=== PATIENT | male | born 1970 | race Caucasian/White ===

== ENCOUNTER 2017-10-12 11:06 | Observation (INO) | payer OTHER ==
[~2017-10-12] VITALS: Ht 167.6 cm; Wt 122.9 kg
[~2017-10-12 11:06] MED LIST: ASPI325 PO; Amoxicillin875 MG PO; Antivert25 MG PO; BENZ100A PO; ERYT.5TO RIGHTEYE; Esgic Tablet1 EACH PO; HYDACE5 PO; LISI20 PO; METF500; METF500 PO; NEOPOLDEXS LEFTEYE; Norco 5-325 Ta1 EACH PO; Pepcid40 MG PO; lisinopril PO
[2017-10-12 11:47] LABS: BASOPHILS ABSOLUTE AUTO 0.09 K/mm3 (0.00-0.23); BASOPHILS PERCENT AUTO 1 % (0-2); EOSINOPHILS ABSOLUTE AUTO 0.11 K/mm3 (0.00-0.68); EOSINOPHILS PERCENT AUTO 1 % (0-6); Hematocrit 42.3 % (37.0-53.0); Hemoglobin 14.9 g/dL (13.5-17.5); IMMATURE GRAN ABSOLUTE AUTO 0.02 K/mm3 (0.00-0.10); IMMATURE GRAN PERCENT AUTO 0 % (0-1); LYMPHOCYTES ABSOLUTE AUTO 2.04 K/mm3 (0.84-5.20); LYMPHOCYTES PERCENT AUTO 25 % (21-46); MONOCYTES ABSOLUTE AUTO 0.47 K/mm3 (0.16-1.47); MONOCYTES PERCENT AUTO 6 % (4-13); Mean Corpuscular HGB 30.2 pg (26.0-34.0); Mean Corpuscular HGB Conc 35.2 g/dL (31.5-36.5); Mean Corpuscular Volume 86 fL (80-100); Mean Platelet Volume 10.7 fL (9.1-12.4); NEUTROPHILS PERCENT AUTO 67 % (41-73); Platelet Count 279 K/mm3 (150-400); RDW Coefficient Variation 12.8 % (11.7-14.2); RDW Standard Deviation 40.1 fL (35.1-46.3); Red Blood Cell Count 4.93 M/mm3 (4.30-5.90); White Blood Cell Count 8.33 K/mm3 (4.00-11.30)
[2017-10-12 12:02] LABS: Troponin I <0.015 ng/mL (0.000-0.040)
[2017-10-12 12:37] LABS: Alanine Aminotransfer (ALT/SGP 39 U/L (12-78); Albumin, Blood 3.4 g/dL (3.4-5.0); Albumin/Globulin Ratio 0.9 (0.8-1.8); Alk Phos 89 U/L (50-136); Anion Gap 10 mmol/L (6-16); Aspartate Aminotrans (AST/SGOT 23 U/L (12-37); Bilirubin, Total 0.6 mg/dL (0.1-1.0); Blood Urea Nitrogen 17 mg/dL (8-24); CO2, Blood 23 mmol/L (21-32); Calcium, Blood 8.4 mg/dL (8.5-10.1); Chloride, Blood 106 mmol/L (98-108); Creatinine, Blood 0.63 mg/dL (0.60-1.20); Globulin, Blood 3.6 g/dL (2.2-4.0); Glomerular Filtration Rate >60 (60-); Glucose, Blood 196 mg/dL (70-99); Potassium, Blood 3.7 mmol/L (3.5-5.5); Sodium, Blood 139 mmol/L (136-145)
[2017-10-12 14:48] LABS: Cholesterol 209 mg/dL (50-200)
[2017-10-12 14:56] LABS: CHOL/HDL RATIO Unable to Calculate; LDL/HDL RATIO Unable to Calculate; Low Density Lipoprotein Chol Unable to Calculate mg/dL (0-110); Triglycerides 1049 mg/dL (30-160); Very Low Density Lipoprot Chol 210 mg/dL (6-32)
[2017-10-12 17:54] LABS: Troponin I <0.015 ng/mL (0.000-0.040)
[2017-10-13 08:13] LABS: Triglycerides 646 mg/dL (30-160)
== END 2017-10-13 11:04 | disposition home or self-care (01) ==
LOC: ER 11:06 → SURS 11:07 → ER 13:22 → SURS 13:22
PROVIDERS: Emergency Medicine; Internal Medicine
DX: R07.9 Chest pain, unspecified (principal); I10 Essential (primary) hypertension; E11.9 Type 2 diabetes mellitus without complications; E66.9 Obesity, unspecified; K21.9 Gastro-esophageal reflux disease without esophagitis; E78.5 Hyperlipidemia, unspecified; E78.1 Pure hyperglyceridemia; M19.90 Unspecified osteoarthritis, unspecified site; Z88.0 Allergy status to penicillin; Z88.5 Allergy status to narcotic agent; Z86.73 Personal history of transient ischemic attack (TIA), and cerebral infarction without residual deficits; Z68.42 Body mass index [BMI] 45.0-49.9, adult; Z79.899 Other long term (current) drug therapy
CPT/HCPCS: 36415; 71046; 80053; 80061; 82947; 83036; 83690; 84443; 84478; 84484; 85025; 85379; 93005; 93010; 93306; 96372; 96374; 96376; 99285; G0378; J1650

== ENCOUNTER 2020-09-11 09:08 | Emergency (ER) | payer OTHER ==
[~2020-09-11] VITALS: Ht 165.1 cm; Wt 129.3 kg
[~2020-09-11 09:08] MED LIST changes: +FENOFIBRATE48 MG PO; +GLIM4 PO; +METF500C PO; +Prinivil10 MG PO
[2020-09-11] MEDS ORDERED: JARDIANCE25 MG PO (09:43)
[2020-09-11] MEDS ORDERED: FISH OIL-VIT D1 EACH PO (09:43)
[2020-09-11] MEDS ORDERED: LISI20 PO (09:43)
[2020-09-11 10:23] LABS: Base Excess Venous -1.6 mmol/L; Bicarbonate Venous 23.3 mmol/L (24.0-30.0); PCO2 Venous 37.2 mmHg (38-42); PO2 Venous 82.1 mmHg (38-42)
[2020-09-11 10:44] LABS: BASOPHILS ABSOLUTE AUTO 0.12 K/mm3 (0.00-0.23); BASOPHILS PERCENT AUTO 2 % (0-2); EOSINOPHILS PERCENT AUTO 1 % (0-6); Hematocrit 45.1 % (37.0-53.0); Hemoglobin 14.9 g/dL (13.5-17.5); IMMATURE GRAN ABSOLUTE AUTO 0.03 K/mm3 (0.00-0.10); IMMATURE GRAN PERCENT AUTO 0 % (0-1); LYMPHOCYTES ABSOLUTE AUTO 2.42 K/mm3 (0.84-5.20); LYMPHOCYTES PERCENT AUTO 29 % (21-46); MONOCYTES ABSOLUTE AUTO 0.51 K/mm3 (0.16-1.47); MONOCYTES PERCENT AUTO 6 % (4-13); Mean Corpuscular HGB 29.1 pg (26.0-34.0); Mean Corpuscular Volume 88 fL (80-100); Mean Platelet Volume 11.1 fL (9.1-12.4); NEUTROPHILS ABSOLUTE AUTO 5.08 K/mm3 (1.96-9.15); NEUTROPHILS PERCENT AUTO 61 % (41-73); Platelet Count 285 K/mm3 (150-400); RDW Coefficient Variation 13.5 % (11.7-14.2); RDW Standard Deviation 43.6 fL (35.1-46.3); Red Blood Cell Count 5.12 M/mm3 (4.30-5.90); White Blood Cell Count 8.26 K/mm3 (4.00-11.30)
[2020-09-11 10:51] LABS: Alanine Aminotransfer (ALT/SGP 45 U/L (12-78); Albumin, Blood 3.7 g/dL (3.4-5.0); Alk Phos 66 U/L (50-136); Anion Gap 8 mmol/L (6-16); Aspartate Aminotrans (AST/SGOT 17 U/L (12-37); Bilirubin, Total 0.5 mg/dL (0.1-1.0); Blood Urea Nitrogen 15 mg/dL (8-24); Bun/Creatinine Ratio 21.5 (12.0-20.0); CO2, Blood 23 mmol/L (21-32); Calcium, Blood 8.8 mg/dL (8.5-10.1); Chloride, Blood 105 mmol/L (98-108); Globulin, Blood 3.7 g/dL (2.2-4.0); Glomerular Filtration Rate >60 (60-); Glucose, Blood 267 mg/dL (70-99); Potassium, Blood 4.3 mmol/L (3.5-5.5); Sodium, Blood 136 mmol/L (136-145); Total Protein, Blood 7.4 g/dL (6.4-8.2); Troponin I <0.015 ng/mL (0.000-0.040)
[2020-09-11] MEDS ORDERED: Ativan1 MG SL (12:50)
== END 2020-09-11 13:03 | disposition home or self-care (01) ==
LOC: ER 09:08
PROVIDERS: Emergency Medicine
DX: R07.9 Chest pain, unspecified (principal); R20.2 Paresthesia of skin; I10 Essential (primary) hypertension; E11.9 Type 2 diabetes mellitus without complications; Z88.0 Allergy status to penicillin; Z88.5 Allergy status to narcotic agent; Z79.84 Long term (current) use of oral hypoglycemic drugs; Z79.899 Other long term (current) drug therapy
CPT/HCPCS: 36415; 71045; 80053; 82803; 83880; 84484; 85025; 93005; 93010; 96361; 96374; 99285-25; J2405; J7030

== ENCOUNTER 2021-01-20 10:25 | Emergency (ER) | payer OTHER ==
[~2021-01-20] VITALS: Ht 165.1 cm; Wt 124.7 kg
[~2021-01-20 10:25] MED LIST changes: +Ativan1 MG SL; +FISH OIL-VIT D1 EACH PO; +JARDIANCE25 MG PO
[2021-01-20 11:44] LABS: BASOPHILS ABSOLUTE AUTO 0.03 K/mm3 (0.00-0.23); BASOPHILS PERCENT AUTO 0 % (0-2); EOSINOPHILS PERCENT AUTO 0 % (0-6); Hematocrit 46.3 % (37.0-53.0); IMMATURE GRAN ABSOLUTE AUTO 0.05 K/mm3 (0.00-0.10); IMMATURE GRAN PERCENT AUTO 0 % (0-1); LYMPHOCYTES ABSOLUTE AUTO 0.95 K/mm3 (0.84-5.20); LYMPHOCYTES PERCENT AUTO 8 % (21-46); MONOCYTES ABSOLUTE AUTO 0.48 K/mm3 (0.16-1.47); MONOCYTES PERCENT AUTO 4 % (4-13); Mean Corpuscular HGB Conc 34.6 g/dL (31.5-36.5); Mean Corpuscular Volume 84 fL (80-100); Mean Platelet Volume 10.6 fL (9.1-12.4); NEUTROPHILS ABSOLUTE AUTO 9.87 K/mm3 (1.96-9.15); NEUTROPHILS PERCENT AUTO 87 % (41-73); Platelet Count 235 K/mm3 (150-400); RDW Coefficient Variation 13.1 % (11.7-14.2); RDW Standard Deviation 40.4 fL (35.1-46.3); Red Blood Cell Count 5.51 M/mm3 (4.30-5.90); White Blood Cell Count 11.38 K/mm3 (4.00-11.30)
[2021-01-20 12:47] LABS: Alanine Aminotransfer (ALT/SGP 25 U/L (12-78); Albumin, Blood 2.6 g/dL (3.4-5.0); Albumin/Globulin Ratio 0.6 (0.8-1.8); Alk Phos 63 U/L (50-136); Anion Gap 18 mmol/L (6-16); Aspartate Aminotrans (AST/SGOT 31 U/L (12-37); Bilirubin, Total 0.6 mg/dL (0.1-1.0); Blood Urea Nitrogen 14 mg/dL (8-24); Bun/Creatinine Ratio 20.3 (12.0-20.0); CO2, Blood 14 mmol/L (21-32); Calcium, Blood 8.1 mg/dL (8.5-10.1); Chloride, Blood 96 mmol/L (98-108); Creatinine, Blood 0.69 mg/dL (0.60-1.20); Globulin, Blood 4.5 g/dL (2.2-4.0); Glomerular Filtration Rate >60 (60-); Glucose, Blood 198 mg/dL (70-99); Potassium, Blood 4.1 mmol/L (3.5-5.5); Sodium, Blood 128 mmol/L (136-145); Total Protein, Blood 7.1 g/dL (6.4-8.2); Troponin I <0.015 ng/mL (0.000-0.040)
== END 2021-01-20 16:25 | disposition home or self-care (01) ==
LOC: ER 10:25
PROVIDERS: Emergency Medicine
DX: K85.90 Acute pancreatitis without necrosis or infection, unspecified (principal); Z79.84 Long term (current) use of oral hypoglycemic drugs; Z79.899 Other long term (current) drug therapy
CPT/HCPCS: 36415; 71045; 71260; 76705; 80053; 83690; 84484; 85025; 85379; 93005; 93010; 96374-59; 96375-59; 99285-25; A9270; A9270-GY; J1170; J2405; J7030; Q9967

== ENCOUNTER 2021-01-22 09:11 | Inpatient (IN) | payer OTHER ==
[~2021-01-22] VITALS: Ht 165.1 cm; Wt 115.2 kg
[2021-01-22] MEDS ORDERED: FENOFIBRATE145 MG PO (09:20)
[2021-01-22 10:00] LABS: BASOPHILS ABSOLUTE AUTO 0.04 K/mm3 (0.00-0.23); BASOPHILS PERCENT AUTO 1 % (0-2); EOSINOPHILS ABSOLUTE AUTO 0.05 K/mm3 (0.00-0.68); EOSINOPHILS PERCENT AUTO 1 % (0-6); Hematocrit 44.2 % (37.0-53.0); Hemoglobin 15.2 g/dL (13.5-17.5); IMMATURE GRAN ABSOLUTE AUTO 0.03 K/mm3 (0.00-0.10); IMMATURE GRAN PERCENT AUTO 0 % (0-1); LYMPHOCYTES ABSOLUTE AUTO 1.16 K/mm3 (0.84-5.20); LYMPHOCYTES PERCENT AUTO 16 % (21-46); MONOCYTES ABSOLUTE AUTO 0.31 K/mm3 (0.16-1.47); MONOCYTES PERCENT AUTO 4 % (4-13); Mean Corpuscular HGB Conc 34.4 g/dL (31.5-36.5); Mean Corpuscular Volume 84 fL (80-100); Mean Platelet Volume 10.8 fL (9.1-12.4); NEUTROPHILS ABSOLUTE AUTO 5.49 K/mm3 (1.96-9.15); NEUTROPHILS PERCENT AUTO 78 % (41-73); Platelet Count 249 K/mm3 (150-400); RDW Coefficient Variation 13.1 % (11.7-14.2); Red Blood Cell Count 5.25 M/mm3 (4.30-5.90); White Blood Cell Count 7.08 K/mm3 (4.00-11.30)
[2021-01-22 10:17] LABS: Alanine Aminotransfer (ALT/SGP 28 U/L (12-78); Albumin, Blood 2.4 g/dL (3.4-5.0); Albumin/Globulin Ratio 0.5 (0.8-1.8); Alk Phos 68 U/L (50-136); Anion Gap 11 mmol/L (6-16); Aspartate Aminotrans (AST/SGOT 47 U/L (12-37); Bilirubin, Total 0.6 mg/dL (0.1-1.0); Blood Urea Nitrogen 11 mg/dL (8-24); Bun/Creatinine Ratio 17.7 (12.0-20.0); CO2, Blood 24 mmol/L (21-32); Calcium, Blood 8.2 mg/dL (8.5-10.1); Chloride, Blood 95 mmol/L (98-108); Creatinine, Blood 0.62 mg/dL (0.60-1.20); Globulin, Blood 4.7 g/dL (2.2-4.0); Glomerular Filtration Rate >60 (60-); Glucose, Blood 203 mg/dL (70-99); Potassium, Blood 4.1 mmol/L (3.5-5.5); Sodium, Blood 130 mmol/L (136-145); Total Protein, Blood 7.1 g/dL (6.4-8.2); Troponin I <0.015 ng/mL (0.000-0.040)
[2021-01-22 11:29] LABS: Influenza A, PCR NEGATIVE (NEGATIVE); Influenza B, PCR NEGATIVE (NEGATIVE); Resp Syncytial Virus, PCR NEGATIVE (NEGATIVE)
[2021-01-22 11:58] LABS: SARS-Cov-2 (COVID-19) PCR, MMC POSITIVE (NEGATIVE)
[2021-01-22] MEDS ORDERED: ESCI20 PO (12:12)
[2021-01-22] MEDS ORDERED: FLUOXETINE HCL20 M2 PO (12:12)
--- NOTE | 2021-01-22 18:11 | NUR ---
SHIFT NOTE PT ARRIVED FROM ER THIS EVENING WITH DX OF COVID, PT WAS ADMITED TO PCU AFTER BEING SEEN IN ER X2 DAYS AGO FOR SOB PT RETURNED HE WANTED TESTED FOR COVID AND STATED INCREASE IN SOB. PT WITH NONLABORED BREATHING, SKIN PWD AND INTACT. TALKING IN FULL SENTENCES. VSS. AMBULATED FROM [facility] TO [facility].
[2021-01-23 04:47] LABS: BASOPHILS ABSOLUTE AUTO 0.02 K/mm3 (0.00-0.23); BASOPHILS PERCENT AUTO 0 % (0-2); EOSINOPHILS PERCENT AUTO 0 % (0-6); Hematocrit 42.6 % (37.0-53.0); Hemoglobin 14.6 g/dL (13.5-17.5); IMMATURE GRAN ABSOLUTE AUTO 0.07 K/mm3 (0.00-0.10); IMMATURE GRAN PERCENT AUTO 1 % (0-1); LYMPHOCYTES ABSOLUTE AUTO 0.94 K/mm3 (0.84-5.20); LYMPHOCYTES PERCENT AUTO 13 % (21-46); MONOCYTES ABSOLUTE AUTO 0.28 K/mm3 (0.16-1.47); MONOCYTES PERCENT AUTO 4 % (4-13); Mean Corpuscular HGB 29.3 pg (26.0-34.0); Mean Corpuscular HGB Conc 34.3 g/dL (31.5-36.5); Mean Corpuscular Volume 86 fL (80-100); Mean Platelet Volume 9.8 fL (9.1-12.4); NEUTROPHILS ABSOLUTE AUTO 6.05 K/mm3 (1.96-9.15); NEUTROPHILS PERCENT AUTO 82 % (41-73); Platelet Count 307 K/mm3 (150-400); RDW Coefficient Variation 13.2 % (11.7-14.2); RDW Standard Deviation 41.1 fL (35.1-46.3); Red Blood Cell Count 4.98 M/mm3 (4.30-5.90); White Blood Cell Count 7.36 K/mm3 (4.00-11.30)
[2021-01-23 05:05] LABS: Anion Gap 15 mmol/L (6-16); Blood Urea Nitrogen 16 mg/dL (8-24); Bun/Creatinine Ratio 24.3 (12.0-20.0); CO2, Blood 20 mmol/L (21-32); Calcium, Blood 8.3 mg/dL (8.5-10.1); Chloride, Blood 97 mmol/L (98-108); Creatinine, Blood 0.66 mg/dL (0.60-1.20); Glomerular Filtration Rate >60 (60-); Glucose, Blood 131 mg/dL (70-99); Potassium, Blood 4.2 mmol/L (3.5-5.5); Sodium, Blood 132 mmol/L (136-145)
--- NOTE | 2021-01-23 06:28 | NUR ---
SHIFT SUMMARY PT A&OX4. USES CALL LIGHT APPROPRIATELY. SP02>92% ON 3L NC. PT HAS NON PRODUCTIVE COUGH AND PAIN WHEN DEEP BREATHING. MEDICATED W/ TYLENOL X1 THIS SHIFT. PT HAS DYSPNEA W/ EXERTION/CONVERSATION. TELMETERY READS SR, HR 80'S. PT USED URINAL AT BEDSIDE. PT SLEPT MOST OF NIGHT. CALL LIGHT IN REACH. WILL GIVE REPORT TO ONCOMING NURSE.
--- NOTE | 2021-01-23 18:24 | NUR ---
PT REPORTS LONELINESS AT BEING IN ISOLATION AND ANXIETY ABOUT BEING FROM HIS DOGS AND ROOMMATES. OXYGENATION LEVEL IS IMPROVING. PT CHANGES POSITIONS FREQUENTLY TO OPTIMIZE OXYGENATION. PT DENIES ADDITIONAL CONCERNS AT THIS TIME.
[2021-01-24 04:51] LABS: Albumin, Blood 2.2 g/dL (3.4-5.0); Anion Gap 11 mmol/L (6-16); Blood Urea Nitrogen 17 mg/dL (8-24); Bun/Creatinine Ratio 29.5 (12.0-20.0); CO2, Blood 22 mmol/L (21-32); Calcium, Blood 8.1 mg/dL (8.5-10.1); Chloride, Blood 97 mmol/L (98-108); Creatinine, Blood 0.58 mg/dL (0.60-1.20); Glomerular Filtration Rate >60 (60-); Glucose, Blood 158 mg/dL (70-99); Phosphorus, Blood 3.9 mg/dL (2.5-4.9); Potassium, Blood 3.9 mmol/L (3.5-5.5); Sodium, Blood 130 mmol/L (136-145)
--- NOTE | 2021-01-24 04:52 | NUR ---
SHIFT SUMMARY NO ACUTE CHANGES THIS SHIFT. PT A&OX4. PER REPORT OF PT FEELING LONELY, THIS RN HAD LENGTHY CONVERSATIONS WITH PT. PT ENGAGED, PLEASANT. SP02>92% ON 2L NC. PT HAS NON PRODUCTIVE, OCCASIONAL DRY COUGH. TELEMETRY READ NSR, HR 80'S. PT USED URINAL MULTIPLE TIMES AT BEDSIDE. PT DENIED PAIN THIS SHIFT. PT SLEPT ON AND OFF T/O NIGHT. CALL LIGHT IN REACH. WILL GIVE REPORT TO ONCOMING NURSE.
--- NOTE | 2021-01-24 18:07 | NUR ---
PT REPORTS DIMINISHED DIFFICULTY BREATHING AND DECREASED ANXIETY AND AIR HUNGER. BLOOD SUGARS CORRECTED 2X PER MAR. PT DENIES ADDITIONAL CONCERNS AT THIS TIME. PT HAS TRANSFER ORDERS TO GO TO ROOM 312 AT SHIFT CHANGE.
--- NOTE | 2021-01-24 19:41 | NUR ---
PHONE REPORT GIVEN TO BG MOORE AT 1930. PT TRANSFERRED TO ROOM 312 VIA WHEELCHAIR WITH TECH AND THERAPY AND MONITORING.
--- NOTE | 2021-01-25 06:30 | NUR ---
SHIFT SUMMARY PT WAS A TRANSFER FROM PCU AT START OF SHIFT, ARRIVING AT 1999. HE WAS ADMITTED FOR COVID-19, IN ENHANCED PRECAUTIONS. HE IS A&O X 4, INDEPENDENT IN THE ROOM. PT IS REPORTING A MILD COUGH AND DYSPNEA, BUT DENIES CP OR NAUSEA. CURRENTLY ON 1L OF O2, SATTING > 90%. TELE SHOWED NSR IN THE 80S. VITAL SIGNS STABLE. NO ACUTE CHANGES IN PT CONDITON NOTED. WILL CONTINUE TO MONITOR AND TREAT PER EMAR UNTIL HAND OFF TO DAY SHIFT RN.
--- NOTE | 2021-01-25 15:49 | NUR ---
PATIENT PLEASANT AND COOPERATIVE WITH STAFF. C/O HEADACHE THIS MORNING WITH EFFECTIVE RESULTS FROM REQUESTED APAP. VITALS HAVE BEEN STABLE. PATIENT CONTINUES ON IV ABX AND ANTI-VIRALS WITHOUT S/SX OF ADVERSE REACTIONS NOTED OR REPORTED. INDEPENDENT IN ROOM. CALLS APPROPRIATELY FOR STAFF NEEDED. CALL LIGHT WITHIN REACH.
--- NOTE | 2021-01-26 06:23 | NUR ---
PT IS A/O IND IN ROOM. TELE IN SR. DRY COUGH NOTED THIS SHIFT SOOTHED BY HOT TEA. PT APPEARED TO HAVE SLEPT THROUGH MOST OF SHIFT AWAKENING TO USE RESTROOM.
[2021-01-26] MEDS ORDERED: ALBU90OI INH (11:41)
[2021-01-26] MEDS ORDERED: VISBIOME 112.51 EACH PO (11:42)
--- NOTE | 2021-01-26 16:07 | NUR ---
DISCHARGE SUMMARY PT DISCHARGE TO HOME ORDERED AT 1540 THIS SHIFT. NO CONCERNS OR COMPLAINTS NOTED TO PATIENT THIS SHIFT, NO ACUTE CHANGES NOTED. PT COOPERATIVE T/O DISCHARGE PROCESS. PT VERBALIZED UNDERSTANDING OF DISCHARGE ORDERS AND INSTRUCTIONS. DISCHARGE PAPERWORK GIVEN TO PT UPON DISCHARGE. IV LINE AND TELE DISCONTINUED PRIOR TO DISCHARGE.
== END 2021-01-26 15:40 | disposition home or self-care (01) | DRG 871 ==
LOC: ER 09:11 → PCU 12:36 → MEDS 01-24 20:00
PROVIDERS: Emergency Medicine; ADMIT Family Medicine
PROC: XW033E5 Introduction of Remdesivir Anti-infective into Peripheral Vein, Percutaneous Approach, New Technology Group 5 (ICD-10-PCS; principal; 2021-01-22)
PROC: 8E0ZXY6 Isolation (ICD-10-PCS; 2021-01-22)
PROC: 3E0333Z Introduction of Anti-inflammatory into Peripheral Vein, Percutaneous Approach (ICD-10-PCS; 2021-01-23)
DX: A41.89 Other specified sepsis (principal); U07.1 COVID-19; J96.01 Acute respiratory failure with hypoxia; J12.82 Pneumonia due to coronavirus disease 2019; Z68.41 Body mass index [BMI] 40.0-44.9, adult; E87.1 Hypo-osmolality and hyponatremia; R65.20 Severe sepsis without septic shock; E11.9 Type 2 diabetes mellitus without complications; I10 Essential (primary) hypertension; E66.01 Morbid (severe) obesity due to excess calories; F40.240 Claustrophobia; G47.30 Sleep apnea, unspecified; E87.5 Hyperkalemia; F32.9 Major depressive disorder, single episode, unspecified; Z86.73 Personal history of transient ischemic attack (TIA), and cerebral infarction without residual deficits
CPT/HCPCS: 0241U; 36415; 71045; 80048; 80053; 80069; 82947; 83605; 84145; 84484; 85025; 85379; 87040; 93005; 93010; 93970; 94762; 96365; 96375; 99285-25; A9270; A9270-GY; J0456; J0696; J1100; J1650; J1815; J7040; J7050

== ENCOUNTER 2021-03-19 13:36 | Emergency (ER) | payer OTHER ==
[~2021-03-19] VITALS: Ht 165.1 cm; Wt 127.9 kg
[~2021-03-19 13:36] MED LIST changes: +ALBU90OI INH; +ESCI20 PO; +FENOFIBRATE145 MG PO; +FLUOXETINE HCL20 M2 PO; +VISBIOME 112.51 EACH PO
[2021-03-19 13:58] LABS: BASOPHILS ABSOLUTE AUTO 0.16 K/mm3 (0.00-0.23); BASOPHILS PERCENT AUTO 2 % (0-2); EOSINOPHILS ABSOLUTE AUTO 0.13 K/mm3 (0.00-0.68); EOSINOPHILS PERCENT AUTO 2 % (0-6); Hematocrit 44.6 % (37.0-53.0); Hemoglobin 15.6 g/dL (13.5-17.5); IMMATURE GRAN ABSOLUTE AUTO 0.01 K/mm3 (0.00-0.10); IMMATURE GRAN PERCENT AUTO 0 % (0-1); LYMPHOCYTES ABSOLUTE AUTO 2.36 K/mm3 (0.84-5.20); LYMPHOCYTES PERCENT AUTO 30 % (21-46); MONOCYTES ABSOLUTE AUTO 0.57 K/mm3 (0.16-1.47); MONOCYTES PERCENT AUTO 7 % (4-13); Mean Corpuscular HGB 30.3 pg (26.0-34.0); Mean Corpuscular Volume 87 fL (80-100); Mean Platelet Volume 10.2 fL (9.1-12.4); NEUTROPHILS ABSOLUTE AUTO 4.64 K/mm3 (1.96-9.15); NEUTROPHILS PERCENT AUTO 59 % (41-73); Platelet Count 329 K/mm3 (150-400); RDW Coefficient Variation 13.4 % (11.7-14.2); RDW Standard Deviation 42.5 fL (35.1-46.3); Red Blood Cell Count 5.15 M/mm3 (4.30-5.90); White Blood Cell Count 7.87 K/mm3 (4.00-11.30)
[2021-03-19 14:16] LABS: Alanine Aminotransfer (ALT/SGP 36 U/L (12-78); Albumin/Globulin Ratio 1.1 (0.8-1.8); Alk Phos 59 U/L (50-136); Anion Gap 8 mmol/L (6-16); Aspartate Aminotrans (AST/SGOT 13 U/L (12-37); Bilirubin, Total 0.5 mg/dL (0.1-1.0); Blood Urea Nitrogen 17 mg/dL (8-24); Bun/Creatinine Ratio 21.9 (12.0-20.0); CO2, Blood 23 mmol/L (21-32); Calcium, Blood 8.9 mg/dL (8.5-10.1); Chloride, Blood 105 mmol/L (98-108); Creatinine, Blood 0.78 mg/dL (0.60-1.20); Globulin, Blood 3.7 g/dL (2.2-4.0); Glomerular Filtration Rate >60 (60-); Glucose, Blood 231 mg/dL (70-99); Potassium, Blood 3.8 mmol/L (3.5-5.5); Sodium, Blood 136 mmol/L (136-145); Total Protein, Blood 7.7 g/dL (6.4-8.2)
== END 2021-03-19 16:16 | disposition left against medical advice (07) ==
LOC: ER 13:36
PROVIDERS: Physician Assistant
DX: K92.0 Hematemesis (principal); Z88.0 Allergy status to penicillin; Z88.5 Allergy status to narcotic agent; Z79.84 Long term (current) use of oral hypoglycemic drugs; Z79.899 Other long term (current) drug therapy
CPT/HCPCS: 36415; 80053; 85025; 99284

== ENCOUNTER 2021-04-30 08:32 | Emergency (ER) | payer OTHER ==
[~2021-04-30] VITALS: Ht 165.1 cm; Wt 124.7 kg
[2021-04-30] MEDS ORDERED: EZETIMIBE10 M6 PO (09:05)
[2021-04-30 09:09] LABS: BASOPHILS PERCENT AUTO 1 % (0-2); EOSINOPHILS ABSOLUTE AUTO 0.08 K/mm3 (0.00-0.68); EOSINOPHILS PERCENT AUTO 1 % (0-6); Hematocrit 44.2 % (37.0-53.0); Hemoglobin 15.2 g/dL (13.5-17.5); IMMATURE GRAN ABSOLUTE AUTO 0.02 K/mm3 (0.00-0.10); IMMATURE GRAN PERCENT AUTO 0 % (0-1); LYMPHOCYTES ABSOLUTE AUTO 1.96 K/mm3 (0.84-5.20); LYMPHOCYTES PERCENT AUTO 28 % (21-46); MONOCYTES ABSOLUTE AUTO 0.53 K/mm3 (0.16-1.47); MONOCYTES PERCENT AUTO 8 % (4-13); Mean Corpuscular HGB 29.6 pg (26.0-34.0); Mean Corpuscular HGB Conc 34.4 g/dL (31.5-36.5); Mean Corpuscular Volume 86 fL (80-100); Mean Platelet Volume 10.4 fL (9.1-12.4); NEUTROPHILS ABSOLUTE AUTO 4.34 K/mm3 (1.96-9.15); NEUTROPHILS PERCENT AUTO 62 % (41-73); Platelet Count 253 K/mm3 (150-400); RDW Standard Deviation 40.5 fL (35.1-46.3); Red Blood Cell Count 5.13 M/mm3 (4.30-5.90); White Blood Cell Count 7.03 K/mm3 (4.00-11.30)
[2021-04-30 09:26] LABS: Troponin I <0.015 ng/mL (0.000-0.040)
[2021-04-30 09:27] LABS: Alanine Aminotransfer (ALT/SGP 39 U/L (12-78); Albumin, Blood 3.8 g/dL (3.4-5.0); Albumin/Globulin Ratio 1.1 (0.8-1.8); Alk Phos 50 U/L (50-136); Anion Gap 7 mmol/L (6-16); Aspartate Aminotrans (AST/SGOT 23 U/L (12-37); Bilirubin, Total 0.5 mg/dL (0.1-1.0); Blood Urea Nitrogen 13 mg/dL (8-24); Bun/Creatinine Ratio 18.7 (12.0-20.0); CO2, Blood 23 mmol/L (21-32); Calcium, Blood 8.4 mg/dL (8.5-10.1); Chloride, Blood 108 mmol/L (98-108); Creatinine, Blood 0.69 mg/dL (0.60-1.20); Globulin, Blood 3.4 g/dL (2.2-4.0); Glomerular Filtration Rate >60 (60-); Glucose, Blood 191 mg/dL (70-99); Potassium, Blood 3.9 mmol/L (3.5-5.5); Sodium, Blood 138 mmol/L (136-145); Total Protein, Blood 7.2 g/dL (6.4-8.2)
== END 2021-04-30 11:02 | disposition home or self-care (01) ==
LOC: ER 08:32
PROVIDERS: Emergency Medicine
DX: R51.9 Headache, unspecified (principal); E11.40 Type 2 diabetes mellitus with diabetic neuropathy, unspecified; I10 Essential (primary) hypertension; E11.9 Type 2 diabetes mellitus without complications; Z88.0 Allergy status to penicillin; Z88.5 Allergy status to narcotic agent; Z79.899 Other long term (current) drug therapy
CPT/HCPCS: 36415; 70450; 80053; 84484; 85025; 93005; 93010; 96374; 96375; 99284-25; J0780; J1200

== ENCOUNTER 2021-08-07 09:59 | Emergency (ER) | payer OTHER ==
[~2021-08-07] VITALS: Ht 170.2 cm; Wt 124.3 kg
[~2021-08-07 09:59] MED LIST changes: +EZETIMIBE10 M6 PO
[2021-08-07 11:01] LABS: BASOPHILS ABSOLUTE AUTO 0.11 K/mm3 (0.00-0.23); BASOPHILS PERCENT AUTO 2 % (0-2); EOSINOPHILS PERCENT AUTO 2 % (0-6); Hematocrit 44.3 % (37.0-53.0); Hemoglobin 15.2 g/dL (13.5-17.5); IMMATURE GRAN ABSOLUTE AUTO 0.02 K/mm3 (0.00-0.10); IMMATURE GRAN PERCENT AUTO 0 % (0-1); LYMPHOCYTES ABSOLUTE AUTO 1.89 K/mm3 (0.84-5.20); LYMPHOCYTES PERCENT AUTO 29 % (21-46); MONOCYTES ABSOLUTE AUTO 0.36 K/mm3 (0.16-1.47); MONOCYTES PERCENT AUTO 5 % (4-13); Mean Corpuscular HGB 29.6 pg (26.0-34.0); Mean Corpuscular HGB Conc 34.3 g/dL (31.5-36.5); Mean Corpuscular Volume 86 fL (80-100); Mean Platelet Volume 9.9 fL (9.1-12.4); NEUTROPHILS ABSOLUTE AUTO 4.16 K/mm3 (1.96-9.15); NEUTROPHILS PERCENT AUTO 63 % (41-73); Platelet Count 280 K/mm3 (150-400); RDW Coefficient Variation 13.1 % (11.7-14.2); RDW Standard Deviation 40.7 fL (35.1-46.3); Red Blood Cell Count 5.14 M/mm3 (4.30-5.90); White Blood Cell Count 6.64 K/mm3 (4.00-11.30)
[2021-08-07 11:01] LABS: Source, Urine Clean Catch
[2021-08-07 11:14] LABS: Bilirubin, Urine Neg (Neg); Blood, Urine 1+ (Neg); Glucose Qualitative, Urine 4+ (Neg); Ketones, Urine Neg (Neg); Leukocyte Esterase, Urine Neg (Neg); Nitrite, Urine Neg (Neg); Protein, Urine 2+ (Neg); Specific Gravity, Urine 1.015 (1.003-1.022); Urobilinogen, Urine NORM (Normal)
[2021-08-07 11:22] LABS: Alanine Aminotransfer (ALT/SGP 38 U/L (12-78); Albumin, Blood 3.5 g/dL (3.4-5.0); Alk Phos 62 U/L (50-136); Anion Gap 6 mmol/L (6-16); Aspartate Aminotrans (AST/SGOT 20 U/L (12-37); Bilirubin, Total 0.4 mg/dL (0.1-1.0); Blood Urea Nitrogen 15 mg/dL (8-24); Bun/Creatinine Ratio 27.4 (12.0-20.0); CO2, Blood 25 mmol/L (21-32); Calcium, Blood 9.1 mg/dL (8.5-10.1); Chloride, Blood 104 mmol/L (98-108); Creatinine, Blood 0.55 mg/dL (0.60-1.20); Globulin, Blood 3.6 g/dL (2.2-4.0); Glomerular Filtration Rate >60 (60-); Glucose, Blood 258 mg/dL (70-99); Potassium, Blood 4.1 mmol/L (3.5-5.5); Sodium, Blood 135 mmol/L (136-145); Total Protein, Blood 7.1 g/dL (6.4-8.2); Troponin I <0.015 ng/mL (0.000-0.040)
[2021-08-07 11:56] LABS: Appearance, Urine Clear (Clear); Color, Urine Yellow (P-Yellow)
[2021-08-07 11:57] LABS: Bacteria Rare /hpf; Squamous Epithelial Cells Not Seen /hpf (Few); White Blood Cells, Urine 0-2 /hpf (0-5)
[2021-08-07] MEDS ORDERED: MECL25 PO (13:17)
== END 2021-08-07 13:25 | disposition home or self-care (01) ==
LOC: ER 09:59
PROVIDERS: Physician Assistant
DX: E86.0 Dehydration (principal); E11.40 Type 2 diabetes mellitus with diabetic neuropathy, unspecified; Z87.891 Personal history of nicotine dependence; Z88.0 Allergy status to penicillin; Z88.5 Allergy status to narcotic agent; Z79.899 Other long term (current) drug therapy
CPT/HCPCS: 36415; 71046; 80053; 81001; 84484; 85025; 93005; 93010; 99284-25; A9270; J7030

== ENCOUNTER 2022-07-21 10:28 | Emergency (ER) | payer OTHER ==
[~2022-07-21] VITALS: Ht 165.1 cm; Wt 124.7 kg
[~2022-07-21 10:28] MED LIST changes: +MECL25 PO
[2022-07-21 12:53] LABS: EOSINOPHILS PERCENT AUTO 2 % (0-6); Hemoglobin 12.7 g/dL (13.5-17.5); MONOCYTES PERCENT AUTO 5 % (4-13)
[2022-07-21 13:47] LABS: BASOPHILS ABSOLUTE AUTO 0.11 K/mm3 (0.00-0.23); BASOPHILS PERCENT AUTO 2 % (0-2); EOSINOPHILS ABSOLUTE AUTO 0.17 K/mm3 (0.00-0.68); IMMATURE GRAN ABSOLUTE AUTO 0.03 K/mm3 (0.00-0.10); IMMATURE GRAN PERCENT AUTO 0 % (0-1); LYMPHOCYTES ABSOLUTE AUTO 2.08 K/mm3 (0.84-5.20); LYMPHOCYTES PERCENT AUTO 29 % (21-46); MONOCYTES ABSOLUTE AUTO 0.38 K/mm3 (0.16-1.47); NEUTROPHILS ABSOLUTE AUTO 4.31 K/mm3 (1.96-9.15); NEUTROPHILS PERCENT AUTO 61 % (41-73); NRBC ABSOLUTE 0.02 K/mm3 (0.00-0.02); NRBC Auto 0.3 /100 WBC (0.0-0.2)
[2022-07-21 13:56] LABS: Hematocrit 40.4 % (37.0-53.0); Mean Corpuscular HGB 27.3 pg (26.0-34.0); Mean Corpuscular Volume 87 fL (80-100); Red Blood Cell Count 4.66 M/mm3 (4.30-5.90); White Blood Cell Count 7.08 K/mm3 (4.00-11.30)
[2022-07-21 13:57] LABS: Mean Corpuscular HGB Conc 31.4 g/dL (31.5-36.5); Platelet Count 322 K/mm3 (150-400); RDW Coefficient Variation 13.5 % (11.7-14.2); RDW Standard Deviation 41.7 fL (35.1-46.3)
[2022-07-21 13:58] LABS: Mean Platelet Volume 10.9 fL (9.1-12.4)
[2022-07-21 15:39] LABS: Albumin, Blood 2.9 g/dL (3.4-5.0); Albumin/Globulin Ratio 0.8 (0.8-1.8); Bilirubin, Total 1.1 mg/dL (0.1-1.0); Bun/Creatinine Ratio 37.4 (12.0-20.0); Calcium, Blood 7.7 mg/dL (8.5-10.1); Creatinine, Blood 0.21 mg/dL (0.60-1.20); Globulin, Blood 3.8 g/dL (2.2-4.0); Potassium, Blood 4.6 mmol/L (3.5-5.5); Total Protein, Blood 6.7 g/dL (6.4-8.2)
[2022-07-21] MEDS ORDERED: MUPIROCIN1 G1 TOP (16:26)
[2022-07-21] MEDS ORDERED: LIDOCAINE1 EAC1 TOP (16:26)
[2022-07-21] MEDS ORDERED: IBUP800 PO (16:26)
== END 2022-07-21 17:05 | disposition home or self-care (01) ==
LOC: ER 10:28
PROVIDERS: Physician Assistant; Student in an Organized Health Care Education/Training Program
DX: R07.89 Other chest pain (principal); L73.9 Follicular disorder, unspecified; E11.65 Type 2 diabetes mellitus with hyperglycemia; I10 Essential (primary) hypertension; Z88.0 Allergy status to penicillin; Z88.5 Allergy status to narcotic agent; Z79.899 Other long term (current) drug therapy; Z79.84 Long term (current) use of oral hypoglycemic drugs
CPT/HCPCS: 36415; 71046; 80053; 82947; 84484; 85025; 85379; 93005; 93010; A9270; J1815; J1885

== ENCOUNTER → 2022-08-16 | Outpatient (CLI) | payer OTHER ==
[~2022-08-16] MED LIST changes: +IBUP800 PO; +LIDOCAINE1 EAC1 TOP; +MUPIROCIN1 G1 TOP
[2022-08-16 18:01] LABS: BASOPHILS ABSOLUTE AUTO 0.12 K/mm3 (0.00-0.23); BASOPHILS PERCENT AUTO 2 % (0-2); EOSINOPHILS PERCENT AUTO 3 % (0-6); Hemoglobin 12.5 g/dL (13.5-17.5); IMMATURE GRAN ABSOLUTE AUTO 0.06 K/mm3 (0.00-0.10); IMMATURE GRAN PERCENT AUTO 1 % (0-1); LYMPHOCYTES PERCENT AUTO 32 % (21-46); MONOCYTES PERCENT AUTO 5 % (4-13); Mean Corpuscular HGB 31.1 pg (26.0-34.0); Mean Corpuscular HGB Conc 35.7 g/dL (31.5-36.5); Mean Corpuscular Volume 87 fL (80-100); Mean Platelet Volume 10.2 fL (9.1-12.4); NEUTROPHILS ABSOLUTE AUTO 4.68 K/mm3 (1.96-9.15); NEUTROPHILS PERCENT AUTO 58 % (41-73); Platelet Count 344 K/mm3 (150-400); RDW Coefficient Variation 13.6 % (11.7-14.2); Red Blood Cell Count 4.02 M/mm3 (4.30-5.90); White Blood Cell Count 8.06 K/mm3 (4.00-11.30)
[2022-08-16 18:08] LABS: Albumin, Blood 3.3 g/dL (3.4-5.0); Albumin/Globulin Ratio 0.9 (0.8-1.8); Bilirubin, Total 0.4 mg/dL (0.1-1.0); Bun/Creatinine Ratio 27.9 (12.0-20.0); Calcium, Blood 7.9 mg/dL (8.5-10.1); Creatinine, Blood 0.68 mg/dL (0.60-1.20); Globulin, Blood 3.5 g/dL (2.2-4.0); Potassium, Blood 3.7 mmol/L (3.5-5.5); Total Protein, Blood 6.8 g/dL (6.4-8.2)
== END | disposition home or self-care (01) ==
LOC: LAB SHORT 17:52 → LAB 17:52
PROVIDERS: Physician Assistant
DX: E11.65 Type 2 diabetes mellitus with hyperglycemia (principal); R07.9 Chest pain, unspecified
CPT/HCPCS: 80053; 83036; 83690; 84484; 85025

== ENCOUNTER 2022-09-13 10:24 | Inpatient (IN) | payer OTHER ==
[~2022-09-13] VITALS: Ht 165.1 cm; Wt 120.2 kg
[2022-09-13 12:13] LABS: BASOPHILS ABSOLUTE AUTO 0.16 K/mm3 (0.00-0.23); BASOPHILS PERCENT AUTO 1 % (0-2); EOSINOPHILS ABSOLUTE AUTO 0.11 K/mm3 (0.00-0.68); EOSINOPHILS PERCENT AUTO 1 % (0-6); Hematocrit 32.7 % (37.0-53.0); Hemoglobin 10.2 g/dL (13.5-17.5); IMMATURE GRAN ABSOLUTE AUTO 0.03 K/mm3 (0.00-0.10); IMMATURE GRAN PERCENT AUTO 0 % (0-1); LYMPHOCYTES ABSOLUTE AUTO 1.44 K/mm3 (0.84-5.20); LYMPHOCYTES PERCENT AUTO 12 % (21-46); MONOCYTES ABSOLUTE AUTO 0.58 K/mm3 (0.16-1.47); MONOCYTES PERCENT AUTO 5 % (4-13); Mean Corpuscular HGB Conc 31.2 g/dL (31.5-36.5); Mean Corpuscular Volume 80 fL (80-100); Mean Platelet Volume 10.5 fL (9.1-12.4); NEUTROPHILS ABSOLUTE AUTO 9.63 K/mm3 (1.96-9.15); NEUTROPHILS PERCENT AUTO 81 % (41-73); Platelet Count 420 K/mm3 (150-400); RDW Standard Deviation 43.4 fL (35.1-46.3); Red Blood Cell Count 4.08 M/mm3 (4.30-5.90); White Blood Cell Count 11.95 K/mm3 (4.00-11.30)
[2022-09-13 12:24] LABS: Albumin, Blood 3.2 g/dL (3.4-5.0); Albumin/Globulin Ratio 0.9 (0.8-1.8); Bilirubin, Total 0.7 mg/dL (0.1-1.0); Bun/Creatinine Ratio 19.3 (12.0-20.0); Calcium, Blood 8.2 mg/dL (8.5-10.1); Creatinine, Blood 0.52 mg/dL (0.60-1.20); Globulin, Blood 3.7 g/dL (2.2-4.0); Potassium, Blood 4.3 mmol/L (3.5-5.5); Total Protein, Blood 6.9 g/dL (6.4-8.2)
[2022-09-13 16:35] LABS: CHOL/HDL RATIO 8.4; Cholesterol 245 mg/dL (50-200); HDL Cholesterol 29 mg/dL (>39); LDL/HDL RATIO Unable to Calculate; Low Density Lipoprotein Chol Unable to Calculate mg/dL (0-110); Triglycerides 846 mg/dL (30-160); Very Low Density Lipoprot Chol Unable to Calculate mg/dL (6-32)
[2022-09-13 16:40] LABS: Thyroid Stimulating Hormone 0.276 uIU/mL (0.360-4.800)
--- NOTE | 2022-09-13 20:06 | NUR ---
ARRIVAL TO MEDICAL FLOOR OBTAINED REPORT ON NEW ADMIT TO [facility] FROM COURIER DRIVER. PATIENT NOTED TO HAVE ACTIVE CHEST PAIN THAT WAS IMPROVED WITH NITRO. TROPONINS TRENDING UP FROM 100-200 UP TO OVER 2200. THIS RN QUESTIONED THE ADMIT TO [facility] FLOOR, INSTEAD OF TO PCU. COURIER DRIVER STATED THAT SINCE THERE WERE NO EKG CHANGES IT WAS APPROPRIATE. INFORMED [facility] CHARGE NURSES OF THIS. PATIENT ARRIVED TO FLOOR. ALERT AND ORIENTED. REPORTING SEVERE CHEST PAIN 05/11. HOSP RESIDENT DR HUERTA ARRIVED TO BEDSIDE AND INFORMED PATIENT OF TROPONIN LEVEL OF OVER 2200. DR HUERTA CALLED DR WAITE INVENTORY MANAGEMENT SPECIALIST. DR WAITE ARRIVED TO ROOM AND ORDERED STAT IV BETA JAVIER, HEPARIN, SL NITRO, AND EKG. THESE ORDERS WERE ENTERED BY PUMP INSTALLATION AND SERVICER RN IN ROOM. AFTER EXAMINATION OF PATIENT AND REVIEW OF EKG DR WAITE ORDERED PATIENT TO BE TAKEN TO TAX MAP TECHNICIAN. BOOKSEAMER BLINDSTITCH NOTIFIED WHO ALERTED TAX MAP TECHNICIAN TEAM.
[2022-09-13 20:12] LABS: Anti-Xa UFH, PHA Monitoring 0.97 IU/mL; International Normalized Ratio 1.1; Prothrombin Time Results 11.5 Sec (9.7-11.5)
[2022-09-13] MEDS ORDERED: GLIMEPIRIDE4 MG PO (20:13)
[2022-09-13] MEDS ORDERED: RYBELSUS7 MG PO (20:13)
[2022-09-13] MEDS ORDERED: MUPIROCIN1 G1 TOP (20:14)
[2022-09-13] MEDS ORDERED: FENO145 PO (20:14)
[2022-09-13] MEDS ORDERED: IBU800 M1 PO (20:15)
[2022-09-13] MEDS ORDERED: Cyclobenzaprine5 MG PO (20:15)
--- NOTE | 2022-09-13 23:16 | NUR ---
DURING SHIFT CHANGE WE WENT INTO THIS PT'S ROOM FIRST TO DO BEDSIDE REPORT. DR HUERTA HAD ORDERED A CARDIOLOGY COSULT FOR DR BUNDY. DR BUNDY CAME TO THE ROOM TO EVALUATE THE PATIENT. THE PATIENT WAS HAVING ACTIVE CHEST PAIN THAT INCREASED WITH BREATHING AND EXERTION. HE ALSO HAD SOME CRITICAL LABS PREVIOUSLY. DR BUNDY DETERMINED THAT PATIENT NEEDED TO GO TO THE FINISH PRODUCTION MANAGER STAT FOR A PROCEDURE. THERE WERE ORDERED FOR METOPROLOL 5 MG IV OT, A BOLUS OF HEPARIN IV OT (DR BUNDY WANTED 7000 UNITS, PHARMACY CHANGED IT TO 5000 UNITS, DR BUNDY HAD A CONVERSATION WITH THEM REGARDING THEM CHANGING IT.), NTG. THESE MEDS WERE GIVEN. THERE WERE ALSO ORDERS FOR A HEPARIN GTT AND NS TO BE STARTED, THESE WERE ORDERED BUT NOT STARTED BEFORE THE PATIENT WAS TAKEN AWAY TO THE FINISH PRODUCTION MANAGER. A SECOND IV WAS ALSO STARTED VIA US. PT WAS TRANSFERRED TO ICU AFTER THEIR PROCEDURE.
[2022-09-14 03:47] LABS: BASOPHILS ABSOLUTE AUTO 0.08 K/mm3 (0.00-0.23); BASOPHILS PERCENT AUTO 1 % (0-2); EOSINOPHILS ABSOLUTE AUTO 0.02 K/mm3 (0.00-0.68); EOSINOPHILS PERCENT AUTO 0 % (0-6); Hematocrit 29.5 % (37.0-53.0); Hemoglobin 9.2 g/dL (13.5-17.5); IMMATURE GRAN ABSOLUTE AUTO 0.04 K/mm3 (0.00-0.10); IMMATURE GRAN PERCENT AUTO 0 % (0-1); LYMPHOCYTES ABSOLUTE AUTO 1.77 K/mm3 (0.84-5.20); LYMPHOCYTES PERCENT AUTO 15 % (21-46); MONOCYTES ABSOLUTE AUTO 0.67 K/mm3 (0.16-1.47); MONOCYTES PERCENT AUTO 6 % (4-13); Mean Corpuscular HGB 25.2 pg (26.0-34.0); Mean Corpuscular HGB Conc 31.2 g/dL (31.5-36.5); Mean Corpuscular Volume 81 fL (80-100); Mean Platelet Volume 9.7 fL (9.1-12.4); NEUTROPHILS ABSOLUTE AUTO 9.13 K/mm3 (1.96-9.15); NEUTROPHILS PERCENT AUTO 78 % (41-73); Platelet Count 375 K/mm3 (150-400); RDW Coefficient Variation 15.3 % (11.7-14.2); RDW Standard Deviation 44.9 fL (35.1-46.3); Red Blood Cell Count 3.65 M/mm3 (4.30-5.90); White Blood Cell Count 11.71 K/mm3 (4.00-11.30)
[2022-09-14 04:21] LABS: Albumin/Globulin Ratio 0.9 (0.8-1.8); Bilirubin, Total 0.6 mg/dL (0.1-1.0); Bun/Creatinine Ratio 20.1 (12.0-20.0); Calcium, Blood 7.9 mg/dL (8.5-10.1); Creatinine, Blood 0.7 mg/dL (0.60-1.20); Free Thyroxine 0.93 ng/dL (0.70-1.60); Globulin, Blood 3.2 g/dL (2.2-4.0); Potassium, Blood 4.3 mmol/L (3.5-5.5); Total Protein, Blood 6.2 g/dL (6.4-8.2)
--- NOTE | 2022-09-14 06:44 | NUR ---
SHIFT SUMMARY: NEURO: PATIENT ALERT AND ORIENTED. SOHAIL WNL. CARDIAC: BP WNL. ON NITRO GTT AT 5/HR. CHEST PAIN RESOLVED RESP: RA, LUNGS CLEAR GI: WNL, DISTENDED ABDOMEN : VOIDS IN URINAL TR BAND REMOVED AT O200
--- NOTE | 2022-09-14 09:27 | NUR ---
ASSUMED CARE REPORT FROM LALI PEDERSON AT 0700. PT RESTING IN BED. DENIES CHEST PAIN, SOB OR OTHER SYMPTOMS. NITRO GTT PLACED ON STANDBY. A&OX 4. SPEAKING IN FULL SENTANCES. ST ON MONITOR, RATE 110'S. BP STABLE. RIGHT RADIAL ACCESS SITE WNL. ARMBOARD IN PLACE. PT INDEPENDENT IN ROOM. STATUS CHANGED TO MED c TELE. INCREASED INSULIN ORDER FOR HIGH GLUCOSE. WILL CONTINUE TO MONITOR.
--- NOTE | 2022-09-14 15:42 | NUR ---
ECHOCARDIOGRAM USING 0.60ML OF DEFINITY CONTRAST PERFORMED.
--- NOTE | 2022-09-14 17:57 | NUR ---
SHIFT SUMMARY NO ACUTE CHANGES THIS SHIFT. PT STATUS CHANGED TO PCU. NITRO REMAINED OFF, DENIES CHEST PAIN OR OTHER SYMPTOMS. HR 110'S, BP STABLE. PT INDEPENDENT IN ROOM. RIGHT RADIAL ACCESS SITE WNL. LUNGS CLEAR. WILL CONTINUE TO MONITOR UNTIL REPORT TO ONCOMING NURSE.
[2022-09-15 05:23] LABS: BASOPHILS ABSOLUTE AUTO 0.11 K/mm3 (0.00-0.23); BASOPHILS PERCENT AUTO 1 % (0-2); EOSINOPHILS ABSOLUTE AUTO 0.19 K/mm3 (0.00-0.68); EOSINOPHILS PERCENT AUTO 2 % (0-6); Hematocrit 32.7 % (37.0-53.0); Hemoglobin 9.7 g/dL (13.5-17.5); IMMATURE GRAN ABSOLUTE AUTO 0.03 K/mm3 (0.00-0.10); IMMATURE GRAN PERCENT AUTO 0 % (0-1); LYMPHOCYTES ABSOLUTE AUTO 1.71 K/mm3 (0.84-5.20); LYMPHOCYTES PERCENT AUTO 17 % (21-46); MONOCYTES ABSOLUTE AUTO 0.77 K/mm3 (0.16-1.47); MONOCYTES PERCENT AUTO 8 % (4-13); Mean Corpuscular HGB 24.7 pg (26.0-34.0); Mean Corpuscular HGB Conc 29.7 g/dL (31.5-36.5); Mean Corpuscular Volume 83 fL (80-100); Mean Platelet Volume 9.9 fL (9.1-12.4); NEUTROPHILS ABSOLUTE AUTO 7.17 K/mm3 (1.96-9.15); NEUTROPHILS PERCENT AUTO 72 % (41-73); Platelet Count 373 K/mm3 (150-400); RDW Coefficient Variation 15.7 % (11.7-14.2); RDW Standard Deviation 47.2 fL (35.1-46.3); Red Blood Cell Count 3.92 M/mm3 (4.30-5.90); White Blood Cell Count 9.98 K/mm3 (4.00-11.30)
--- NOTE | 2022-09-15 05:46 | NUR ---
SHIFT SUMMARY: NEURO: PATIENT SLEPT BETWEEN CARE. COMPLAINED OF DIFFICULTY STAYING ASLEEP. CLAIMED THAT HE WAS HAVING PANIC ATTACKS THAT WOKE HIM UP BUT SAYS THAT HAPPENS AT HOME WELL. ORIENTED X4. FOLLOWS COMMANDS AND WATSON. CARDIAC: HR 110'S-120'S ST. BP WNL. AFEBRILE. NO CHEST PAIN OR SOB REPORTED. RESP: RA MAINTAINING O2 >95%. RT NOTIFIED OF CPAP ORDER AND ATTEMPTED TO PLACE PATIENT ON IT, BUT PATIENT DID NOT TOLERATE IT AND REFUSED TO WEAR IT. EDUCATED PATIENT ON IMPORTANCE OF WEARING CPAP FOR HIS PULMONARY HYPERTENSION. PATIENT UNDERSTANDS BUT CLAIMS HE FEELS CLAUSTROPHOBIC. GI: PER PATIENT STATEMENT, LBM WAS 12/14 : PATIENT VOIDS IN THE URINAL APPROPRIATELY SKIN: INTACT BUT PALE
[2022-09-15 05:50] LABS: Albumin, Blood 2.9 g/dL (3.4-5.0); Albumin/Globulin Ratio 0.8 (0.8-1.8); Bilirubin, Total 0.9 mg/dL (0.1-1.0); Bun/Creatinine Ratio 18.8 (12.0-20.0); Calcium, Blood 8.1 mg/dL (8.5-10.1); Creatinine, Blood 0.53 mg/dL (0.60-1.20); Globulin, Blood 3.6 g/dL (2.2-4.0); Potassium, Blood 3.5 mmol/L (3.5-5.5); Total Protein, Blood 6.5 g/dL (6.4-8.2)
--- NOTE | 2022-09-15 17:40 | NUR ---
SHIFT SUMMARY NO ACUTE CHANGES THIS SHIFT. STATUS CHANGED TO MED c TELE. REMAINS CHEST PAIN FREE. DENIES SYMPTOMS OR COMPLAINTS. SR-ST, RATE 90-110'S. BP STABLE. LUNGS CLEAR. SPEAKING IN FULL SENTANCES. RA. INDEPENDENT IN ROOM. WILL CONTINUE TO MONITOR UNTIL REPORT TO ONCOMING NURSE.
--- NOTE | 2022-09-15 23:05 | NUR ---
ASSUMED CARE ASSUMED CARE AT 1900. PT A/O X 4. CALM AND COOPERATIVE WITH CARE. PT ON PORTABLE TELE AND ENCOURAGED TO AMBULATE PER DR SOTO REQUEST. R RADIAL ACCESS SOFT AND NON-TENDER. NO BRUISING OR HEMATOMA NOTED. SEE SHIFT ASSESSMENT FOR FULL ASSESSMENT. PT IND IN ROOM. CALL LIGHT IN REACH.
--- NOTE | 2022-09-16 05:28 | NUR ---
SHIFT SUMMARY NO ACUTE EVENTS T/O NIGHT. PT SLEPT MOST OF THE NIGHT, DECLINED TO WEAR CPAP WHEN ENCOURAGED TO TRY WEARING IT. IND IN ROOM. NO C/O CHEST PAIN OR DIZZINESS THIS SHIFT. VSS.
[2022-09-16 05:29] LABS: BASOPHILS ABSOLUTE AUTO 0.11 K/mm3 (0.00-0.23); BASOPHILS PERCENT AUTO 1 % (0-2); EOSINOPHILS ABSOLUTE AUTO 0.26 K/mm3 (0.00-0.68); EOSINOPHILS PERCENT AUTO 3 % (0-6); Hematocrit 30.6 % (37.0-53.0); Hemoglobin 9.2 g/dL (13.5-17.5); IMMATURE GRAN ABSOLUTE AUTO 0.03 K/mm3 (0.00-0.10); IMMATURE GRAN PERCENT AUTO 0 % (0-1); LYMPHOCYTES ABSOLUTE AUTO 1.94 K/mm3 (0.84-5.20); LYMPHOCYTES PERCENT AUTO 21 % (21-46); MONOCYTES ABSOLUTE AUTO 0.59 K/mm3 (0.16-1.47); MONOCYTES PERCENT AUTO 6 % (4-13); Mean Corpuscular HGB 24.4 pg (26.0-34.0); Mean Corpuscular HGB Conc 30.1 g/dL (31.5-36.5); Mean Corpuscular Volume 81 fL (80-100); Mean Platelet Volume 9.9 fL (9.1-12.4); NEUTROPHILS ABSOLUTE AUTO 6.46 K/mm3 (1.96-9.15); NEUTROPHILS PERCENT AUTO 69 % (41-73); Platelet Count 383 K/mm3 (150-400); RDW Coefficient Variation 15.9 % (11.7-14.2); RDW Standard Deviation 47.4 fL (35.1-46.3); Red Blood Cell Count 3.77 M/mm3 (4.30-5.90); White Blood Cell Count 9.39 K/mm3 (4.00-11.30)
[2022-09-16 05:42] LABS: Magnesium, Blood 2.1 mg/dL (1.6-2.4)
[2022-09-16 05:43] LABS: Alanine Aminotransfer (ALT/SGP 40 U/L (12-78); Albumin/Globulin Ratio 0.9 (0.8-1.8); Alk Phos 70 U/L (50-136); Anion Gap 14 mmol/L (6-16); Aspartate Aminotrans (AST/SGOT 35 U/L (12-37); Bilirubin, Total 0.7 mg/dL (0.1-1.0); Blood Urea Nitrogen 18 mg/dL (8-24); Bun/Creatinine Ratio 31.9 (12.0-20.0); CO2, Blood 19 mmol/L (21-32); Calcium, Blood 8.1 mg/dL (8.5-10.1); Chloride, Blood 104 mmol/L (98-108); Creatinine, Blood 0.56 mg/dL (0.60-1.20); Globulin, Blood 3.5 g/dL (2.2-4.0); Glomerular Filtration Rate 119 (60-); Glucose, Blood 184 mg/dL (70-99); Phosphorus, Blood 5.2 mg/dL (2.5-4.9); Sodium, Blood 137 mmol/L (136-145); Total Protein, Blood 6.5 g/dL (6.4-8.2)
--- NOTE | 2022-09-16 09:10 | NUR ---
AT 0835 PT CALLED WITH THE CALL LIGHT STATING HE HAD A MOMENT WHERE HE WAS DIZZY AND HIS VISION STARTED FADING. WHEN RN ENTERED THE ROOM PT LAYING IN BED. TOOK BP AND NOTED IT WAS LOW. PT HAD RECEIVED CARDIAC MEDS ONE HOUR PRIOR. PT DENIES CP OR PRESSURE, DENIES SOB, AND DENIES N/V. PT WAS FEELING BETTER, THIS RN INSTRUCTED PT TO STAY IN BED. PT LAYING COMFORTABLEY IN BED THIS RN LEAVES THE ROOM. PRIMARY RN NOTIFIED OF EVENTS AND BP BEING MONITORED. DR. WAITE HERE NOW REVIEWING CHART, RHYTHMS, AND MEDS WITH PRIMARY RN.
[2022-09-16 09:53] LABS: BASOPHILS ABSOLUTE AUTO 0.16 K/mm3 (0.00-0.23); BASOPHILS PERCENT AUTO 1 % (0-2); EOSINOPHILS ABSOLUTE AUTO 0.32 K/mm3 (0.00-0.68); EOSINOPHILS PERCENT AUTO 2 % (0-6); Hematocrit 33.8 % (37.0-53.0); Hemoglobin 10.1 g/dL (13.5-17.5); IMMATURE GRAN ABSOLUTE AUTO 0.26 K/mm3 (0.00-0.10); IMMATURE GRAN PERCENT AUTO 1 % (0-1); LYMPHOCYTES ABSOLUTE AUTO 5.98 K/mm3 (0.84-5.20); LYMPHOCYTES PERCENT AUTO 32 % (21-46); MONOCYTES ABSOLUTE AUTO 0.86 K/mm3 (0.16-1.47); MONOCYTES PERCENT AUTO 5 % (4-13); Mean Corpuscular HGB 24.5 pg (26.0-34.0); Mean Corpuscular HGB Conc 29.9 g/dL (31.5-36.5); Mean Corpuscular Volume 82 fL (80-100); Mean Platelet Volume 10.2 fL (9.1-12.4); NEUTROPHILS ABSOLUTE AUTO 11.26 K/mm3 (1.96-9.15); NEUTROPHILS PERCENT AUTO 60 % (41-73); NRBC ABSOLUTE 0.06 K/mm3 (0.00-0.02); NRBC Auto 0.3 /100 WBC (0.0-0.2); Platelet Count 458 K/mm3 (150-400); RDW Coefficient Variation 15.9 % (11.7-14.2); RDW Standard Deviation 47.4 fL (35.1-46.3); Red Blood Cell Count 4.13 M/mm3 (4.30-5.90); White Blood Cell Count 18.84 K/mm3 (4.00-11.30)
[2022-09-16 10:06] LABS: International Normalized Ratio 1.06; Prothrombin Time Results 11.1 Sec (9.7-11.5)
[2022-09-16 10:15] LABS: Bun/Creatinine Ratio 25.3 (12.0-20.0); Calcium, Blood 8.2 mg/dL (8.5-10.1); Creatinine, Blood 0.75 mg/dL (0.60-1.20); Magnesium, Blood 2.3 mg/dL (1.6-2.4); Phosphorus, Blood 5.5 mg/dL (2.5-4.9); Potassium, Blood 3.6 mmol/L (3.5-5.5)
--- NOTE | 2022-09-16 10:16 | NUR ---
Pt. coded. During code this lab engineer provided communication support to the nurse branch lending manager. Providing Phone number for the NOk (sister), who subsequently called the ICU for an update.
[2022-09-16 10:31] LABS: Source, Urine Foley catheter
[2022-09-16 10:34] LABS: Appearance, Urine Clear (Clear); Bilirubin, Urine Neg (Neg); Blood, Urine 2+ (Neg); Color, Urine Yellow (P-Yellow); Glucose Qualitative, Urine 4+ (Neg); Ketones, Urine 2+ (Neg); Leukocyte Esterase, Urine Neg (Neg); Nitrite, Urine Neg (Neg); Protein, Urine 3+ (Neg); Urobilinogen, Urine NORM (Normal)
[2022-09-16 11:08] LABS: Granular Casts 0-2 /lpf (0); Hyaline Casts 0-2 /lpf (0-2)
[2022-09-16 11:09] LABS: Bacteria Few /hpf; Mucus Mod (0-Heavy); Squamous Epithelial Cells Few /hpf (Few)
--- NOTE | 2022-09-16 11:29 | NUR ---
CODE BLUE AT 0923 PT NOTED TO BE IN VFIB ON MONITOR. PT WAS FOUND UNRESPONSIVE IN BEDSIDE CHAIR. PT MOVED TO BED, AND CPR STARTED. DR WAITE AT BEDSIDE WITNESSED INITIAL VFIB ARREST. PT INTUBATED BY ED PHYSICIAN. CENTRAL LINE PLACED BY DR SALAZAR. PT RECIEVED MULTIPLE CODE MEDS. PT WITH ROSC AT 0927. SEE CODE SHEET FOR MORE CODE INFO. SEE ICU FLOW SHEET FOR GTT TITRATIONS. VENT SETTINGS AC 20, TV 500, PEEP 8, FIO2 100%.
[2022-09-16 12:02] LABS: PCO2 Arterial 28.1 mmHg (35-45); PO2 Arterial 353 mmHg (80-100)
--- NOTE | 2022-09-16 12:59 | NUR ---
Responding to Code. SHAW approximately 12:50pm. Contacted MELODY, who had questions about whether she would be able to see the Pt. MELODY verbalized that she is in [place]. informed MELODY that Pt. would be taken to a local home and that they would be instructed to contact MELODY. Consulted with ICU charge nurse Ni, who will contact the current on-call home.
--- NOTE | 2022-09-16 13:00 | NUR ---
CODE ANGELA / TIME OF PT WITH CONTINUED DROP IN BP DESPITE PRESSORS AND CONTINUED DROP IN ETCO2. CUPOLA CHARGER INSULATION AT BEDSIDE PERFORMING ECHO NOTED PT WITHOUT PULSE. CPR STARTED AND KANU MILLER CALLED AT 1243. DR SALAZAR AND DR WAITE AT BEDSIDE. SEE KANU MILLER FOR MORE INFO. PULSE CHECK DONE AT 1250 VIA DOPPLER AND WITH ECHO, NO VENTRICULAR WALL MOVEMENT NOTED. DR SALAZAR INSTRUCTED TO DISCONTINUE ANY MORE CPR AND MEDS. TIME OF CALLED AT [address] WAITE. PT SISTER FROM OUT OF STATE UPDATED BY DR JAFFE ABOUT PT'S PASSING. PT SISTER WITH NO PREFERENCE OF LOCAL HOME SERVICE.
--- NOTE | 2022-09-16 13:55 | NUR ---
Stat limited echo performed. Dr. Manav Walker present during exam to evaluate images stat.
== END 2022-09-16 12:51 | DRG 246 ==
LOC: ER 10:24 → ERHOLD 10:25 → ER 10:25 → MEDS 18:03 → ERHOLD 18:03 → MEDS 18:38 → ICUW 21:56 → MEDS 21:56 → ICUW 21:56 → MEDS 09-14 07:54 → ICUW 09-14 07:55
PROVIDERS: Emergency Medicine; Family Medicine; Internal Medicine Critical Care Medicine; ADMIT Hospitalist
PROC: 027034Z Dilation of Coronary Artery, One Artery with Drug-eluting Intraluminal Device, Percutaneous Approach (ICD-10-PCS; principal; 2022-09-13)
PROC: 4A023N7 Measurement of Cardiac Sampling and Pressure, Left Heart, Percutaneous Approach (ICD-10-PCS; 2022-09-13)
PROC: B211YZZ Fluoroscopy of Multiple Coronary Arteries using Other Contrast (ICD-10-PCS; 2022-09-13)
PROC: B215YZZ Fluoroscopy of Left Heart using Other Contrast (ICD-10-PCS; 2022-09-13)
PROC: B24BZZ3 Ultrasonography of Heart with Aorta, Intravascular (ICD-10-PCS; 2022-09-13)
PROC: 0BH18EZ Insertion of Endotracheal Airway into Trachea, Via Natural or Artificial Opening Endoscopic (ICD-10-PCS; 2022-09-16)
PROC: 5A12012 Performance of Cardiac Output, Single, Manual (ICD-10-PCS; 2022-09-16)
PROC: 02HV33Z Insertion of Infusion Device into Superior Vena Cava, Percutaneous Approach (ICD-10-PCS; 2022-09-16)
PROC: 3E033XZ Introduction of Vasopressor into Peripheral Vein, Percutaneous Approach (ICD-10-PCS; 2022-09-16)
PROC: 5A1935Z Respiratory Ventilation, Less than 24 Consecutive Hours (ICD-10-PCS; 2022-09-16)
DX: I21.02 ST elevation (STEMI) myocardial infarction involving left anterior descending coronary artery (principal); I50.41 Acute combined systolic (congestive) and diastolic (congestive) heart failure; I47.29 Other ventricular tachycardia; Z68.42 Body mass index [BMI] 45.0-49.9, adult; R57.0 Cardiogenic shock; Z66 Do not resuscitate; Z51.5 Encounter for palliative care; Z78.1 Physical restraint status; I49.01 Ventricular fibrillation; E11.9 Type 2 diabetes mellitus without complications; I27.20 Pulmonary hypertension, unspecified; G47.33 Obstructive sleep apnea (adult) (pediatric); I11.0 Hypertensive heart disease with heart failure; E66.9 Obesity, unspecified; E78.5 Hyperlipidemia, unspecified; E05.90 Thyrotoxicosis, unspecified without thyrotoxic crisis or storm; I25.10 Atherosclerotic heart disease of native coronary artery without angina pectoris; I46.2 Cardiac arrest due to underlying cardiac condition; Z86.73 Personal history of transient ischemic attack (TIA), and cerebral infarction without residual deficits; Z87.891 Personal history of nicotine dependence; Z88.0 Allergy status to penicillin; Z88.6 Allergy status to analgesic agent; Z79.84 Long term (current) use of oral hypoglycemic drugs; Z79.899 Other long term (current) drug therapy
CPT/HCPCS: 31500; 36415; 36556; 36600; 36620; 51702; 71045; 76937; 80048; 80053; 80061; 81001; 82272; 82803; 82947; 83605; 83690; 83735; 83880; 84100; 84145; 84439; 84443; 84481; 84484; 85025; 85347; 85520; 85610; 85730; 92921; 92950; 93005; 93010; 93308; 93458; 94002; 94660; 94760; 96374; 96375; 99152; 99153; 99285-25; A9270; C1725; C1751; C1769; C1874; C1887; C1894; C8929; C9600; G0378; J0171; J0282; J1644; J1650; J1815; J1940; J2001; J2250; J2260; J2405; J3010; J3370; J3475; J7030; J7040; J7050; J7060; J7070; Q9957; Q9967